=== PATIENT | female | born 1990 | race Caucasian/White ===

== ENCOUNTER 2016-07-15 22:00 | Emergency (ER) | payer OTHER ==
--- NOTE | 2016-07-16 00:15 | ED NURSING NOTES ---
Clinical Report - Nurses [facility] [address] [place] [address] 07/15/2016 22:00 Patient: LUDMILA JEFFERS TRIAGE Acuity: LEVEL 3. Chief Complaint: COUGH and AIRWAY OBSTRUCTION. Alert. No acute distress. --22:07 Melva Mayberry R.N. 22:03 07/15/16. BP: 125/82. HR: 113. RR: 24. O2 saturation: 99% on room air. Temp: 98.1 F (oral). Pain level now: 0/10. --22:07 Melva Mayberry R.N. Weight: 86.1 kg stated. Height/Length: 63 inches Per Patient. BMI: 33.6. --22:05 Melva Mayberry R.N. Medications Fish Oil Oral. --22:04 Melva Mayberry R.N. Medication/allergy information source: the patient. --22: Melva Mayberry R.N. Allergies Keflex. --22:04 Melva Mayberry R.N. Amoxicillin. --22:04 Melva Mayberry R.N. History Arrived by private vehicle. Historian: patient. Accompanied by spouse. Onset. (45 minutes ago). Treatment DIRECTOR OF PUBLIC SAFETY: (allergy medication). PAST MEDICAL HX: Immunizations: up-to-date. Last normal menstrual period was 3 weeks ago. SOCIAL HX: Never smoker. FALL RISK ASSESSMENT: Fall risk assessment completed. No fall risk identified. NUTRITIONAL RISK ASSESSMENT: The nutritional risk assessment revealed no deficiencies. FUNCTIONAL ASSESSMENT: Functional assessment: no impairments noted. LEARNING NEEDS ASSESSMENT: The learning needs assessment revealed no barriers. SKIN INTEGRITY ASSESSMENT: Skin integrity risk assessment completed. No skin integrity risk identified. --22:07 Melva Mayberry R.N. Assessment GENERAL / NEURO / PSYCH: Alert. Oriented X 4. Appears in no acute distress. Patient appears calm and cooperative. RESPIRATORY: Mild respiratory distress. Cough. CVS: Capillary refill less than 2 seconds. GI / : Abdomen nontender. SKIN: Mucous membranes are pink. Skin is warm and dry. --: Melva Mayberry R.N. Interventions ID band on patient. To treatment room. --: Melva Mayberry R.N. PHYSICAL ASSESSMENT :07/15/16. Ambulatory to room. GENERAL / NEURO / PSYCH: Alert. Oriented X 4. Appears in no acute distress. HEENT: Pupils equal, round and reactive to light. Voice within normal limits. Mucous membranes are pink. RESPIRATORY: Mild respiratory distress. The patient can speak in full sentences. Cough. CVS: Capillary refill less than 2 seconds. SKIN: Skin is warm and dry. Normal skin turgor. --: Melva Mayberry R.N. NURSING PROGRESS NOTES :07/15/16. Patient gowned. Reassurance given. Two patient identifiers checked. Call light placed in reach. Side rails up x 1. Bed placed in lowest position. Brakes of bed on. Patient ready for evaluation- chart flagged. --: Melva Mayberry R.N. 22:07/15/2016 Site #1 started via IV in the right wrist with an 20g angiocath, with aseptic technique and good blood return; one attempt. Blood drawn: rainbow set. Labeled in the presence of the patient and held. Saline lock flushed with 10 mL saline. --22: Melva Mayberry R.N. 22:07/15/2016 SOLU-MEDROL (MethylPREDNISolone Sodium Succ) IVP 80 mg given over 2 minute(s) via site #1. Allergies verified and confirmed 5 rights. IV patency established. IV site checked: no pain, redness, or swelling. IV flushed thoroughly pre- and post-medication administration. IVP given by RN. --22: Melva Mayberry R.N. 22:07/15/2016 Benadryl (DiphenhydrAMINE HCl) IVP 25 mg given over 1 minute(s) via site #1. Allergies verified, confirmed 5 rights and sedative warning given to the patient. IV patency established. IV site checked: no pain, redness, or swelling. IV flushed thoroughly pre- and post-medication administration. IVP given by RN. --: Melva Mayberry R.N. 22:07/15/2016 Famotidine PO 40 mg given. Allergies verified and confirmed 5 rights. --22: Melva Mayberry R.N. 22:07/15/2016 Albuterol Neb TX 2.5 mg given. Given by the respiratory therapist. Allergies verified and confirmed 5 rights. --22:29 Melva Mayberry R.N. 23:07/15/16. BP: 108/61. HR: 90. RR: 18. O2 saturation: 99% on room air. --23: Melva Mayberry R.N. 22:40 07/15/2016 RACEPINEPHRINE Neb TX Nebulizer 1 unit dose given. Given by the respiratory therapist. Allergies verified and confirmed 5 rights. --23:19 Saeed Gomez R.N. 23:07/15/16. The patient reports no complaints, she is calm and resting quietly and she has had no adverse reaction. Overall patient status- she states feels better. RESPIRATORY: Denies cough. No respiratory distress present. --23: Melva Mayberry R.N. 23:51 07/15/16. BP: 109/59. HR: 90 (normal rate). RR: 18 (regular, unlabored and normal). O2 saturation: 97% on room air. --23:52 Saeed Gomez R.N. The patient is calm and resting quietly. RESPIRATORY: No respiratory distress. --23:52 Saeed Gomez R.N. 00:26 07/16/2016 SOLU-MEDROL IVP Response: no adverse reaction symptoms have improved the patient feels better. --00:26 Saeed Gomez R.N. 00:07/16/2016 Benadryl IVP Response: no adverse reaction symptoms have improved the patient feels better. --00:26 Saeed Gomez R.N. 00:07/16/2016 Famotidine PO Response: no adverse reaction symptoms have improved the patient feels better. --00:26 Saeed Gomez R.N. 00:26 07/16/2016 Albuterol Neb TX Response: no adverse reaction symptoms have improved the patient feels better. --00:26 Saeed Gomez R.N. 00:26 07/16/2016 RACEPINEPHRINE Neb TX Response: no adverse reaction symptoms have improved the patient feels better. --00:26 Saeed Gomez R.N. DISPOSITION / DISCHARGE Departure time: 0030. Condition at departure: stable. The goals identified in the patient's plan of care were met. No learning barriers present. Discharge instructions provided and reviewed with the patient. Reviewed medication(s) side effects, precautions, dosing and course information. Prescription(s) given to the patient. Patient verbalized understanding. Written instructions provided in Faroese. ( Ludmila verbalizes understanding of all d/c instructions including need to f/u with PCP. She has no questions and voices no concerns at this time.). The patient was discharged by the physician. She was discharged home and accompanied by microsoft exchange architect. She left the Emergency Department ambulatory and via private vehicle. Industrial Therapist driving. LORY COMA SCORE: Lory Coma Scale: 15- eyes open spontaneously (4); best verbal response- oriented x 4 (5); best motor response- obeys commands (6). --00:31 Saeed Gomez R.N. 00:30 07/16/16. BP: 113/65 (regular adult cuff) taken on the left arm, via an automated monitor, while sitting. HR: 97 (normal rate). RR: 16 (regular, unlabored and normal). O2 saturation: 98% on room air. Temp: 97.7 F (oral). Pain level now: 0/10. --00:31 Saeed Gomez R.N. 00:31 07/16/2016 Site #1 removed upon discharge. Catheter intact. Bandaid applied (Bleeding controlled.). --00:32 Saeed Gomez R.N. Locked/Released at 07/16/2016 0:32 by Saeed Gomez R.N.
--- NOTE | 2016-07-16 00:15 | ED ORDER SUMMARY ---
..... Patient: CAITY JEFFERS OrderSheet [facility] VisitID: [id number] [place] [address] 26y, F Registration Date/Time: 07/15/2016 ORDER SHEET Weight: 86.1 kg (stated) Allergies: Keflex, Amoxicillin GENERAL ORDERS: MEDICATION ORDERS: Famotidine PO 40 mg (NOW) (22:19 07/15/2016 Jeanna PLATT) (Ack 22:20 MWinterer R.N.) (22:29 MWinterer R.N.) Albuterol Neb Tx 2.5 mg (NOW, HHN) (22:20 07/15/2016 Jeanna PLATT) (Ack 22:20 MWinterer R.N.) (22:29 MWinterer R.N.) Racepinephrine Neb Tx 1 unit dose (NOW) (23:16 07/15/2016 Jeanna PLATT) (23:19 JDeElena R.N.) IV FLUIDS: Solu-MEDROL IV 80 mg (NOW) (22:19 07/15/2016 Jeanna PLATT) (Ack 22:20 MWinterer R.N.) (22:28 MWinterer R.N.) Benadryl IV 25 mg (NOW) (22:19 07/15/2016 Jeanna PLATT) (Ack 22:20 MWinterer R.N.) (22:29 MWinterer R.N.) ORDER SHEET NOTES: [Electronically signed by Saeed Gomez R.N. (00:32 07/16/2016)] [Electronically signed by Raphael Epps MD (11:44 07/19/2016)] [Electronically locked/signed by Saeed Gomez R.N. (00:32 07/16/2016)]
--- NOTE | 2016-07-16 00:15 | ED NURSING NOTES ---
Clinical Report - Nurses [facility] [address] [place] [address] 07/15/2016 22:00 Patient: LUDMILA JEFFERS TRIAGE Acuity: LEVEL 3. Chief Complaint: COUGH and AIRWAY OBSTRUCTION. Alert. No acute distress. --22:07 Melva Mayberry R.N. 22:03 07/15/16. BP: 125/82. HR: 113. RR: 24. O2 saturation: 99% on room air. Temp: 98.1 F (oral). Pain level now: 0/10. --22:07 Melva Mayberry R.N. Weight: 86.1 kg stated. Height/Length: 63 inches Per Patient. BMI: 33.6. --22:05 Melva Mayberry R.N. Medications Fish Oil Oral. --22:04 Melva Mayberry R.N. Medication/allergy information source: the patient. --22: Melva Mayberry R.N. Allergies Keflex. --22:04 Melva Mayberry R.N. Amoxicillin. --22:04 Melva Mayberry R.N. History Arrived by private vehicle. Historian: patient. Accompanied by spouse. Onset. (45 minutes ago). Treatment LINER REPLACER: (allergy medication). PAST MEDICAL HX: Immunizations: up-to-date. Last normal menstrual period was 3 weeks ago. SOCIAL HX: Never smoker. FALL RISK ASSESSMENT: Fall risk assessment completed. No fall risk identified. NUTRITIONAL RISK ASSESSMENT: The nutritional risk assessment revealed no deficiencies. FUNCTIONAL ASSESSMENT: Functional assessment: no impairments noted. LEARNING NEEDS ASSESSMENT: The learning needs assessment revealed no barriers. SKIN INTEGRITY ASSESSMENT: Skin integrity risk assessment completed. No skin integrity risk identified. --22:07 Melva Mayberry R.N. Assessment GENERAL / NEURO / PSYCH: Alert. Oriented X 4. Appears in no acute distress. Patient appears calm and cooperative. RESPIRATORY: Mild respiratory distress. Cough. CVS: Capillary refill less than 2 seconds. GI / : Abdomen nontender. SKIN: Mucous membranes are pink. Skin is warm and dry. --: Melva Mayberry R.N. Interventions ID band on patient. To treatment room. --: Melva Mayberry R.N. PHYSICAL ASSESSMENT :07/15/16. Ambulatory to room. GENERAL / NEURO / PSYCH: Alert. Oriented X 4. Appears in no acute distress. HEENT: Pupils equal, round and reactive to light. Voice within normal limits. Mucous membranes are pink. RESPIRATORY: Mild respiratory distress. The patient can speak in full sentences. Cough. CVS: Capillary refill less than 2 seconds. SKIN: Skin is warm and dry. Normal skin turgor. --: Melva Mayberry R.N. NURSING PROGRESS NOTES :07/15/16. Patient gowned. Reassurance given. Two patient identifiers checked. Call light placed in reach. Side rails up x 1. Bed placed in lowest position. Brakes of bed on. Patient ready for evaluation- chart flagged. --: Melva Mayberry R.N. 22:07/15/2016 Site #1 started via IV in the right wrist with an 20g angiocath, with aseptic technique and good blood return; one attempt. Blood drawn: rainbow set. Labeled in the presence of the patient and held. Saline lock flushed with 10 mL saline. --22: Melva Mayberry R.N. 22:07/15/2016 SOLU-MEDROL (MethylPREDNISolone Sodium Succ) IVP 80 mg given over 2 minute(s) via site #1. Allergies verified and confirmed 5 rights. IV patency established. IV site checked: no pain, redness, or swelling. IV flushed thoroughly pre- and post-medication administration. IVP given by RN. --22: Melva Mayberry R.N. 22:07/15/2016 Benadryl (DiphenhydrAMINE HCl) IVP 25 mg given over 1 minute(s) via site #1. Allergies verified, confirmed 5 rights and sedative warning given to the patient. IV patency established. IV site checked: no pain, redness, or swelling. IV flushed thoroughly pre- and post-medication administration. IVP given by RN. --: Melva Mayberry R.N. 22:07/15/2016 Famotidine PO 40 mg given. Allergies verified and confirmed 5 rights. --22: Melva Mayberry R.N. 22:07/15/2016 Albuterol Neb TX 2.5 mg given. Given by the respiratory therapist. Allergies verified and confirmed 5 rights. --22:29 Melva Mayberry R.N. 23:07/15/16. BP: 108/61. HR: 90. RR: 18. O2 saturation: 99% on room air. --23: Melva Mayberry R.N. 22:40 07/15/2016 RACEPINEPHRINE Neb TX Nebulizer 1 unit dose given. Given by the respiratory therapist. Allergies verified and confirmed 5 rights. --23:19 Saeed Gomez R.N. 23:07/15/16. The patient reports no complaints, she is calm and resting quietly and she has had no adverse reaction. Overall patient status- she states feels better. RESPIRATORY: Denies cough. No respiratory distress present. --23: Melva Mayberry R.N. 23:51 07/15/16. BP: 109/59. HR: 90 (normal rate). RR: 18 (regular, unlabored and normal). O2 saturation: 97% on room air. --23:52 Saeed Gomez R.N. The patient is calm and resting quietly. RESPIRATORY: No respiratory distress. --23:52 Saeed Gomez R.N. 00:26 07/16/2016 SOLU-MEDROL IVP Response: no adverse reaction symptoms have improved the patient feels better. --00:26 Saeed Gomez R.N. 00:07/16/2016 Benadryl IVP Response: no adverse reaction symptoms have improved the patient feels better. --00:26 Saeed Gomez R.N. 00:07/16/2016 Famotidine PO Response: no adverse reaction symptoms have improved the patient feels better. --00:26 Saeed Gomez R.N. 00:26 07/16/2016 Albuterol Neb TX Response: no adverse reaction symptoms have improved the patient feels better. --00:26 Saeed Gomez R.N. 00:26 07/16/2016 RACEPINEPHRINE Neb TX Response: no adverse reaction symptoms have improved the patient feels better. --00:26 Saeed Gomez R.N. DISPOSITION / DISCHARGE Departure time: 0030. Condition at departure: stable. The goals identified in the patient's plan of care were met. No learning barriers present. Discharge instructions provided and reviewed with the patient. Reviewed medication(s) side effects, precautions, dosing and course information. Prescription(s) given to the patient. Patient verbalized understanding. Written instructions provided in Croatian. ( Ludmila verbalizes understanding of all d/c instructions including need to f/u with PCP. She has no questions and voices no concerns at this time.). The patient was discharged by the physician. She was discharged home and accompanied by pan tank worker. She left the Emergency Department ambulatory and via private vehicle. Containers Sales Representative driving. LORY COMA SCORE: Lory Coma Scale: 15- eyes open spontaneously (4); best verbal response- oriented x 4 (5); best motor response- obeys commands (6). --00:31 Saeed Gomez R.N. 00:30 07/16/16. BP: 113/65 (regular adult cuff) taken on the left arm, via an automated monitor, while sitting. HR: 97 (normal rate). RR: 16 (regular, unlabored and normal). O2 saturation: 98% on room air. Temp: 97.7 F (oral). Pain level now: 0/10. --00:31 Saeed Gomez R.N. 00:31 07/16/2016 Site #1 removed upon discharge. Catheter intact. Bandaid applied (Bleeding controlled.). --00:32 Saeed Gomez R.N. Locked/Released at 07/16/2016 0:32 by Saeed Gomez R.N.
--- NOTE | 2016-07-16 00:15 | ED ORDER SUMMARY ---
..... Patient: CAITY JEFFERS OrderSheet [facility] VisitID: [id number] [place] [address] 26y, F Registration Date/Time: 07/15/2016 ORDER SHEET Weight: 86.1 kg (stated) Allergies: Keflex, Amoxicillin GENERAL ORDERS: MEDICATION ORDERS: Famotidine PO 40 mg (NOW) (22:19 07/15/2016 Jeanna PLATT) (Ack 22:20 MWinterer R.N.) (22:29 MWinterer R.N.) Albuterol Neb Tx 2.5 mg (NOW, HHN) (22:20 07/15/2016 Jeanna PLATT) (Ack 22:20 MWinterer R.N.) (22:29 MWinterer R.N.) Racepinephrine Neb Tx 1 unit dose (NOW) (23:16 07/15/2016 Jeanna PLATT) (23:19 JDeElena R.N.) IV FLUIDS: Solu-MEDROL IV 80 mg (NOW) (22:19 07/15/2016 Jeanna PLATT) (Ack 22:20 MWinterer R.N.) (22:28 MWinterer R.N.) Benadryl IV 25 mg (NOW) (22:19 07/15/2016 Jeanna PLATT) (Ack 22:20 MWinterer R.N.) (22:29 MWinterer R.N.) ORDER SHEET NOTES: [Electronically signed by Saeed Gomez R.N. (00:32 07/16/2016)] [Electronically signed by Raphael Epps MD (11:44 07/19/2016)] [Electronically locked/signed by Saeed Gomez R.N. (00:32 07/16/2016)]
--- NOTE | 2016-07-16 00:18 | ED CLINICAL REPORT ---
Clinical Report - Physicians/Mid Levels [facility] [address] [place] [address] 07/15/2016 22:00 Patient: CAITY JEFFERS Time Seen: 00:18 Jul 16 2016; initial documentation. Arrived- By private vehicle. Historian- patient. CPT: ER phys charges level 4 (#[id number]). HISTORY OF PRESENT ILLNESS Chief Complaint: ALLERGIC REACTION. THROAT SWELLING and DYSPNEA. This started just prior to arrival and is still present. No skin rash. She has had difficulty breathing but not had itching or swelling. A possible cause has been identified (Dogs). The patient was not assessed by EMS prior to arrival. No treatment prior to arrival. Similar symptoms previously: Milder. Recent medical care: Not recently seen/assessed. REVIEW OF SYSTEMS No eye problems, cough, sputum production, fever or chills. No joint pain, enlarged lymph nodes, headache, weakness or numbness. No chest pain, palpitations, abdominal pain, vomiting or black stools. The patient has had a sore throat. All systems otherwise negative, except as recorded above. PAST HISTORY See nurses notes. Prior allergic reaction. Medications: Fish Oil Oral. Allergies: Amoxicillin. Keflex. SOCIAL HISTORY Never smoker. ADDITIONAL NOTES The nursing notes have been reviewed. PHYSICAL EXAM Vital Signs: 07/15/2016 22:03 BP: 125/82. HR: 113. RR: 24. O2 saturation: 99%. Temp: 98.1 F. Pain level now: 0/10. Appearance: Alert. Patient in mild distress. Head and Neck: Normal external inspection. Head: No facial angioedema. Eyes: Pupils equal, round and reactive to light. ENT: Ears normal. Nose normal. Pharynx normal. Voice normal. No muffled or hoarse voice, pharyngeal erythema or nasal discharge. Neck: Neck supple. CVS: Normal heart rate and rhythm. Heart sounds normal. Respiratory: No respiratory distress. Breath sounds normal. No stridor or wheezes. (Pt with persistent cough.). Abdomen: Nontender. Skin: Skin warm and dry. Extremities: Normal external inspection. Extremities nontender. Skin: Normal skin color. Neuro: Oriented X 3. No motor deficit. No sensory deficit. PROGRESS AND PROCEDURES Course of Care: Racemic epi Solumedrol 80 mg IV Benadryl 25 mg IV Famotadine 40 mg po Patient is stable. Symptoms much better. Patient/family counseled. Disposition: Discharged. Condition: stable and improved. CLINICAL IMPRESSION Localized allergic reaction secondary to Dogs. No skin rash or hives. INSTRUCTIONS No strenuous activity. Rest. Do not work today, for one day until better. Warnings: Further evaluation is necessary. GENERAL WARNINGS: Return or contact your physician immediately if your condition worsens or changes unexpectedly, if not improving as expected, or if other problems arise. Your Current Medications: CONTINUE TAKING THE FOLLOWING MEDICATIONS: Fish Oil Oral. Prescription Medications: Famotidine 40 mg orally dissolving: take 1 orally at bedtime for 3 days. Dispense five (5). No refills. Prednisone 40 mg po q day for 3 days. OTC Medications: Benadryl Allergy 25 mg (available over the counter): take 1 orally every 6 hours as needed for allergies. Dispense fifteen (15). No refill. Substitution is permissible. Follow-up: Follow up with your doctor in two days if not better. Understanding of the discharge instructions verbalized by patient. Discharge instructions reviewed with and understanding was verbalized by dishwasher preparer. (Electronically signed by Raphael Epps MD 07/19/2016 11:44)
--- NOTE | 2016-07-16 00:18 | ED CLINICAL REPORT ---
Clinical Report - Physicians/Mid Levels [facility] [address] [place] [address] 07/15/2016 22:00 Patient: CAITY JEFFERS Time Seen: 00:18 Jul 16 2016; initial documentation. Arrived- By private vehicle. Historian- patient. CPT: ER phys charges level 4 (#[id number]). HISTORY OF PRESENT ILLNESS Chief Complaint: ALLERGIC REACTION. THROAT SWELLING and DYSPNEA. This started just prior to arrival and is still present. No skin rash. She has had difficulty breathing but not had itching or swelling. A possible cause has been identified (Dogs). The patient was not assessed by EMS prior to arrival. No treatment prior to arrival. Similar symptoms previously: Milder. Recent medical care: Not recently seen/assessed. REVIEW OF SYSTEMS No eye problems, cough, sputum production, fever or chills. No joint pain, enlarged lymph nodes, headache, weakness or numbness. No chest pain, palpitations, abdominal pain, vomiting or black stools. The patient has had a sore throat. All systems otherwise negative, except as recorded above. PAST HISTORY See nurses notes. Prior allergic reaction. Medications: Fish Oil Oral. Allergies: Amoxicillin. Keflex. SOCIAL HISTORY Never smoker. ADDITIONAL NOTES The nursing notes have been reviewed. PHYSICAL EXAM Vital Signs: 07/15/2016 22:03 BP: 125/82. HR: 113. RR: 24. O2 saturation: 99%. Temp: 98.1 F. Pain level now: 0/10. Appearance: Alert. Patient in mild distress. Head and Neck: Normal external inspection. Head: No facial angioedema. Eyes: Pupils equal, round and reactive to light. ENT: Ears normal. Nose normal. Pharynx normal. Voice normal. No muffled or hoarse voice, pharyngeal erythema or nasal discharge. Neck: Neck supple. CVS: Normal heart rate and rhythm. Heart sounds normal. Respiratory: No respiratory distress. Breath sounds normal. No stridor or wheezes. (Pt with persistent cough.). Abdomen: Nontender. Skin: Skin warm and dry. Extremities: Normal external inspection. Extremities nontender. Skin: Normal skin color. Neuro: Oriented X 3. No motor deficit. No sensory deficit. PROGRESS AND PROCEDURES Course of Care: Racemic epi Solumedrol 80 mg IV Benadryl 25 mg IV Famotadine 40 mg po Patient is stable. Symptoms much better. Patient/family counseled. Disposition: Discharged. Condition: stable and improved. CLINICAL IMPRESSION Localized allergic reaction secondary to Dogs. No skin rash or hives. INSTRUCTIONS No strenuous activity. Rest. Do not work today, for one day until better. Warnings: Further evaluation is necessary. GENERAL WARNINGS: Return or contact your physician immediately if your condition worsens or changes unexpectedly, if not improving as expected, or if other problems arise. Your Current Medications: CONTINUE TAKING THE FOLLOWING MEDICATIONS: Fish Oil Oral. Prescription Medications: Famotidine 40 mg orally dissolving: take 1 orally at bedtime for 3 days. Dispense five (5). No refills. Prednisone 40 mg po q day for 3 days. OTC Medications: Benadryl Allergy 25 mg (available over the counter): take 1 orally every 6 hours as needed for allergies. Dispense fifteen (15). No refill. Substitution is permissible. Follow-up: Follow up with your doctor in two days if not better. Understanding of the discharge instructions verbalized by patient. Discharge instructions reviewed with and understanding was verbalized by supervisor tubing. (Electronically signed by Raphael Epps MD 07/19/2016 11:44)
--- NOTE | 2016-07-19 11:45 | ED MED RECONCILIATION SUMMARY ---
Patient: CAITY JEFFERS Medication Reconciliation Report [facility] VisitID: [id number] [address] [place] [address] 26y, F Registration Date/Time: 07/15/2016 Weight: 86.1 kg Height/Length: 63 in. BMI: 33.6 ALLERGIES: Amoxicillin, Keflex The patient's Home Medications are listed below: CONTINUE TAKING THE FOLLOWING MEDICATIONS: Fish Oil Oral The source(s) of the original Home Medication information: patient The following Medications were given to the patient in the Emergency Department: SOLU-MEDROL [IVP] IVP 80 mg, administered: 07/15/2016 10:28:00 PM Benadryl [IVP] IVP 25 mg, administered: 07/15/2016 10:28:00 PM Famotidine [PO] PO 40 mg, administered: 07/15/2016 10:29:00 PM Albuterol [Neb Tx] Neb TX 2.5 mg, administered: 07/15/2016 10:29:00 PM RACEPINEPHRINE [NEB TX] Neb TX 1 unit dose, administered: 07/15/2016 10:40:00 PM The following Medications were prescribed to the patient: Prednisone 40 mg po q day for 3 days. -- Raphael Epps MD Benadryl Allergy 25 mg (available over the counter): take 1 orally every 6 hours as needed for allergies. Dispense fifteen (15). No refill. Substitution is permissible. -- Raphael Epps MD Famotidine 40 mg orally dissolving: take 1 orally at bedtime for 3 days. Dispense five (5). No refills. -- Raphael Epps MD
--- NOTE | 2016-07-19 11:45 | ED DISCHARGE INSTRUCTIONS ---
Patient: CAITY JEFFERS General Instructions [facility] VisitID: [id number] [place] [address] 26y, F Registration Date/Time: 07/15/2016 Localized allergic reaction secondary to Dogs. No skin rash or hives. INSTRUCTIONS No strenuous activity. Rest. Do not work today, for one day until better. Warnings: Further evaluation is necessary. GENERAL WARNINGS: Return or contact your physician immediately if your condition worsens or changes unexpectedly, if not improving as expected, or if other problems arise. Your Current Medications: CONTINUE TAKING THE FOLLOWING MEDICATIONS: Fish Oil Oral. Prescription Medications: Famotidine 40 mg orally dissolving: take 1 orally at bedtime for 3 days. Dispense five (5). No refills. Prednisone 40 mg po q day for 3 days. OTC Medications: Benadryl Allergy 25 mg (available over the counter): take 1 orally every 6 hours as needed for allergies. Dispense fifteen (15). No refill. Substitution is permissible. Follow-up: Follow up with your doctor in two days if not better. Understanding of the discharge instructions verbalized by patient. Discharge instructions reviewed with and understanding was verbalized by straight cutter. ADDITIONAL INFORMATION Allergic Reaction,Generalized [Other] You are having an allergic reaction. This may cause an itchy rash, dizziness, fainting, trouble breathing or swallowing, and swelling of the face or other parts of the body. This can be caused by exposure to something in your surroundings that you have become sensitive to. This could be due to medicine or food. This could also be due to something you put on your skin or in your hair or something in the air. Often it is not possible to find out exactly what has caused your reaction. The goal of today's treatment is to relieve symptoms. The rash will usually fade over several days, but can sometimes last up to two weeks. Home Care: 1) If you know what you are allergic to, avoid it because future reactions could be worse than this one. 2) Avoid tight clothing and anything that heats up your skin (hot showers/baths, direct sunlight) since heat will make itching worse. 3) An ice pack will relieve local areas of intense itching and redness. Lanacaine cream or Solarcaine spray (or other product containing "benzocaine", available without a prescription) will reduce the itching. 4) Oral Benadryl (diphenhydramine) is an antihistamine available at drug and grocery stores. Unless a prescription antihistamine was given, Benadryl may be used to reduce itching if large areas of the skin are involved. Use lower doses during the daytime and higher doses at bedtime since the drug may make you sleepy. [NOTE: Do not use Benadryl if you have glaucoma or if you are a man with trouble urinating due to an enlarged prostate.] Claritin (loratidine) is an antihistamine that causes less drowsiness and is a good alternative for daytime use. Follow Up Follow Up with your doctor or this facility in two days if your symptoms do not continue to improve. If you had a severe reaction today, or if you have had several mild-moderate allergic reactions in the past, ask your doctor about allergy testing to find out what you are allergic to. If your reaction included dizziness, fainting or trouble breathing or swallowing, ask your doctor about carrying an Allergy Kit (injectable epinephrine) for home use. Get Prompt Medical Attention if any of the following occur: -- Trouble breathing or swallowing -- New or worse swelling in the face, eyelids, lips, mouth, tongue or throat -- Dizziness, weakness or fainting Famotidine Oral tablet What is this medicine? FAMOTIDINE (fa MARCO ti london) is a type of antihistamine that blocks the release of stomach acid. It is used to treat stomach or intestinal ulcers. It can also relieve heartburn from acid reflux. How should I use this medicine? Take this medicine by mouth with a glass of water. Follow the directions on the prescription label. If you only take this medicine once a day, take it at bedtime. Take your doses at regular intervals. Do not take your medicine more often than directed. Talk to your body component engineer regarding the use of this medicine in children. Special care may be needed. What side effects may I notice from receiving this medicine? Side effects that you should report to your doctor or health health care recruiter as soon as possible: agitation, nervousness confusion hallucinations skin rash, itching Side effects that usually do not require medical attention (report to your doctor or health health care recruiter if they continue or are bothersome): constipation diarrhea dizziness headache What may interact with this medicine? delavirdine itraconazole ketoconazole What if I miss a dose? If you miss a dose, take it as soon as you can. If it is almost time for your next dose, take only that dose. Do not take double or extra doses. Where should I keep my medicine? Keep out of the reach of children. Store at room temperature between 15 and 30 degrees C (59 and 86 degrees F). Do not freeze. Throw away any unused medicine after the expiration date. What should I tell my health care provider before I take this medicine? They need to know if you have any of these conditions: kidney or liver disease trouble swallowing an unusual or allergic reaction to famotidine, other medicines, foods, dyes, or preservatives or trying to get breast-feeding What should I watch for while using this medicine? Tell your doctor or health health care recruiter if your condition does not start to get better or if it gets worse. Finish the full course of tablets prescribed, even if you feel better. Do not take with aspirin, ibuprofen or other antiinflammatory medicines. These can make your condition worse. Do not smoke cigarettes or drink alcohol. These cause irritation in your stomach and can increase the time it will take for ulcers to heal. If you get black, tarry stools or vomit up what looks like coffee grounds, call your doctor or health health care recruiter at once. You may have a bleeding ulcer. Diphenhydramine Tannate Chewable tablet What is this medicine? DIPHENHYDRAMINE (dye ronda chen) is an antihistamine. It is used to treat the symptoms of an allergic reaction. How should I use this medicine? Take this medicine by mouth. Chew it completely before swallowing. Follow the directions on the prescription label. Take your doses at regular intervals. Do not take your medicine more often than directed. Talk to your body component engineer regarding the use of this medicine in children. While this drug may be prescribed for children as young as 6 years old for selected conditions, precautions do apply. Patients over 65 years old may have a stronger reaction and need a smaller dose. What side effects may I notice from receiving this medicine? Side effects that you should report to your doctor or health health care recruiter as soon as possible: allergic reactions like skin rash, itching or hives, swelling of the face, lips, or tongue changes in vision confused, agitated, nervous irregular or fast heartbeat tremor trouble passing urine unusual bleeding or bruising unusually weak or tired Side effects that usually do not require medical attention (report to your doctor or health health care recruiter if they continue or are bothersome): constipation, diarrhea drowsy headache loss of appetite stomach upset, vomiting thick mucous What may interact with this medicine? Do not take this medicine with any of the following medications: MAOIs like Carbex, Eldepryl, Marplan, Nardil, and Parnate This medicine may also interact with the following medications: alcohol barbiturates, like phenobarbital medicines for bladder spasm like oxybutynin, tolterodine medicines for blood pressure medicines for depression, anxiety, or psychotic disturbances medicines for movement abnormalities or Parkinson's disease medicines for sleep other medicines for cold, cough or allergy some medicines for the stomach like chlordiazepoxide, dicyclomine What if I miss a dose? If you miss a dose, take it as soon as you can. If it is almost time for your next dose, take only that dose. Do not take double or extra doses. Where should I keep my medicine? Keep out of the reach of children. Store at room temperature between 15 and 30 degrees C (59 and 86 degrees F). Keep container closed tightly. Throw away any unused medicine after the expiration date. What should I tell my health care provider before I take this medicine? They need to know if you have any of these conditions: glaucoma high blood pressure heart disease liver disease lung or breathing disease, like asthma pain or difficulty passing urine phenylketonuria prostate trouble ulcers or other stomach problems an unusual or allergic reaction to diphenhydramine, sulfites, other medicines foods, dyes, or preservatives or trying to get breast-feeding What should I watch for while using this medicine? Visit your doctor or health health care recruiter for regular check ups. Tell your doctor or healthcare professional if your symptoms do not start to get better or if they get worse. Your mouth may get dry. Chewing sugarless gum or sucking hard candy, and drinking plenty of water may help. Contact your doctor if the problem does not go away or is severe. This medicine may cause dry eyes and blurred vision. If you wear contact lenses you may feel some discomfort. Lubricating drops may help. See your eye doctor if the problem does not go away or is severe. You may get drowsy or dizzy. Do not drive, use machinery, or do anything that needs mental alertness until you know how this medicine affects you. Do not stand or sit up quickly, especially if you are an older patient. This reduces the risk of dizzy or fainting spells. Alcohol may interfere with the effect of this medicine. Avoid alcoholic drinks. You have been given the following additional information: Allergic Reaction, Other (General) Famotidine Oral tablet Diphenhydramine Tannate Chewable tablet No strenuous activity. Rest. Do not work today, for one day until better. (Electronically signed by Raphael Epps MD 07/19/2016 11:44)
--- NOTE | 2016-07-19 11:45 | ED MAR SUMMARY ---
..... Medication Administration Record [facility] [address] [place] [address] Patient: CAITY JEFFERS Visit ID: [id number] 26y, F Weight: 86.1 kg Height/Length: 63 in BMI: 33.6 ALLERGIES: Amoxicillin, Keflex Given 07/15/2016 Melva Mayberry R.N. Medication Administered: SOLU-MEDROL [IVP] (METHYLPREDNISOLONE SODIUM SUCC), Dose: 80 mg IVP over 2 minute(s), Site: #1 right wrist. Medication Ordered: Solu-MEDROL IV 80 mg (NOW). Given 07/15/2016 eMlva Mayberry R.N. Medication Administered: BENADRYL [IVP] (DIPHENHYDRAMINE HCL), Dose: 25 mg IVP over 1 minute(s), Site: #1 right wrist. Medication Ordered: Benadryl IV 25 mg (NOW). Given 07/15/2016 Melva Mayberry R.N. Medication Administered: FAMOTIDINE [PO], Dose: 40 mg PO. Medication Ordered: Famotidine PO 40 mg (NOW). Given 07/15/2016 Melva Mayberry R.N. Medication Administered: ALBUTEROL [NEB TX], Dose: 2.5 mg Neb TX. Medication Ordered: Albuterol Neb Tx 2.5 mg (NOW, [facility]). Given 07/15/2016 Saeed Gomez R.N. Medication Administered: RACEPINEPHRINE [NEB TX], Dose: 1 unit dose Nebulizer Neb TX. Medication Ordered: Racepinephrine Neb Tx 1 unit dose (NOW).
--- NOTE | 2016-07-19 11:45 | ED MED RECONCILIATION SUMMARY ---
Patient: CAITY JEFFERS Medication Reconciliation Report [facility] VisitID: [id number] [address] [place] [address] 26y, F Registration Date/Time: 07/15/2016 Weight: 86.1 kg Height/Length: 63 in. BMI: 33.6 ALLERGIES: Amoxicillin, Keflex The patient's Home Medications are listed below: CONTINUE TAKING THE FOLLOWING MEDICATIONS: Fish Oil Oral The source(s) of the original Home Medication information: patient The following Medications were given to the patient in the Emergency Department: SOLU-MEDROL [IVP] IVP 80 mg, administered: 07/15/2016 10:28:00 PM Benadryl [IVP] IVP 25 mg, administered: 07/15/2016 10:28:00 PM Famotidine [PO] PO 40 mg, administered: 07/15/2016 10:29:00 PM Albuterol [Neb Tx] Neb TX 2.5 mg, administered: 07/15/2016 10:29:00 PM RACEPINEPHRINE [NEB TX] Neb TX 1 unit dose, administered: 07/15/2016 10:40:00 PM The following Medications were prescribed to the patient: Prednisone 40 mg po q day for 3 days. -- Raphael Epps MD Benadryl Allergy 25 mg (available over the counter): take 1 orally every 6 hours as needed for allergies. Dispense fifteen (15). No refill. Substitution is permissible. -- Raphael Epps MD Famotidine 40 mg orally dissolving: take 1 orally at bedtime for 3 days. Dispense five (5). No refills. -- Raphael Epps MD
--- NOTE | 2016-07-19 11:45 | ED MAR SUMMARY ---
..... Medication Administration Record [facility] [address] [place] [address] Patient: CAITY JEFFERS Visit ID: [id number] 26y, F Weight: 86.1 kg Height/Length: 63 in BMI: 33.6 ALLERGIES: Amoxicillin, Keflex Given 07/15/2016 Melva Mayberry R.N. Medication Administered: SOLU-MEDROL [IVP] (METHYLPREDNISOLONE SODIUM SUCC), Dose: 80 mg IVP over 2 minute(s), Site: #1 right wrist. Medication Ordered: Solu-MEDROL IV 80 mg (NOW). Given 07/15/2016 Melva Mayberry R.N. Medication Administered: BENADRYL [IVP] (DIPHENHYDRAMINE HCL), Dose: 25 mg IVP over 1 minute(s), Site: #1 right wrist. Medication Ordered: Benadryl IV 25 mg (NOW). Given 07/15/2016 Melva Mayberry R.N. Medication Administered: FAMOTIDINE [PO], Dose: 40 mg PO. Medication Ordered: Famotidine PO 40 mg (NOW). Given 07/15/2016 Melva Mayberry R.N. Medication Administered: ALBUTEROL [NEB TX], Dose: 2.5 mg Neb TX. Medication Ordered: Albuterol Neb Tx 2.5 mg (NOW, [facility]). Given 07/15/2016 Saeed Gomez R.N. Medication Administered: RACEPINEPHRINE [NEB TX], Dose: 1 unit dose Nebulizer Neb TX. Medication Ordered: Racepinephrine Neb Tx 1 unit dose (NOW).
--- NOTE | 2016-07-19 11:45 | ED DISCHARGE INSTRUCTIONS ---
Patient: CAITY JEFFERS General Instructions [facility] VisitID: [id number] [place] [address] 26y, F Registration Date/Time: 07/15/2016 Localized allergic reaction secondary to Dogs. No skin rash or hives. INSTRUCTIONS No strenuous activity. Rest. Do not work today, for one day until better. Warnings: Further evaluation is necessary. GENERAL WARNINGS: Return or contact your physician immediately if your condition worsens or changes unexpectedly, if not improving as expected, or if other problems arise. Your Current Medications: CONTINUE TAKING THE FOLLOWING MEDICATIONS: Fish Oil Oral. Prescription Medications: Famotidine 40 mg orally dissolving: take 1 orally at bedtime for 3 days. Dispense five (5). No refills. Prednisone 40 mg po q day for 3 days. OTC Medications: Benadryl Allergy 25 mg (available over the counter): take 1 orally every 6 hours as needed for allergies. Dispense fifteen (15). No refill. Substitution is permissible. Follow-up: Follow up with your doctor in two days if not better. Understanding of the discharge instructions verbalized by patient. Discharge instructions reviewed with and understanding was verbalized by stock handler floorperson. ADDITIONAL INFORMATION Allergic Reaction,Generalized [Other] You are having an allergic reaction. This may cause an itchy rash, dizziness, fainting, trouble breathing or swallowing, and swelling of the face or other parts of the body. This can be caused by exposure to something in your surroundings that you have become sensitive to. This could be due to medicine or food. This could also be due to something you put on your skin or in your hair or something in the air. Often it is not possible to find out exactly what has caused your reaction. The goal of today's treatment is to relieve symptoms. The rash will usually fade over several days, but can sometimes last up to two weeks. Home Care: 1) If you know what you are allergic to, avoid it because future reactions could be worse than this one. 2) Avoid tight clothing and anything that heats up your skin (hot showers/baths, direct sunlight) since heat will make itching worse. 3) An ice pack will relieve local areas of intense itching and redness. Lanacaine cream or Solarcaine spray (or other product containing "benzocaine", available without a prescription) will reduce the itching. 4) Oral Benadryl (diphenhydramine) is an antihistamine available at drug and grocery stores. Unless a prescription antihistamine was given, Benadryl may be used to reduce itching if large areas of the skin are involved. Use lower doses during the daytime and higher doses at bedtime since the drug may make you sleepy. [NOTE: Do not use Benadryl if you have glaucoma or if you are a man with trouble urinating due to an enlarged prostate.] Claritin (loratidine) is an antihistamine that causes less drowsiness and is a good alternative for daytime use. Follow Up Follow Up with your doctor or this facility in two days if your symptoms do not continue to improve. If you had a severe reaction today, or if you have had several mild-moderate allergic reactions in the past, ask your doctor about allergy testing to find out what you are allergic to. If your reaction included dizziness, fainting or trouble breathing or swallowing, ask your doctor about carrying an Allergy Kit (injectable epinephrine) for home use. Get Prompt Medical Attention if any of the following occur: -- Trouble breathing or swallowing -- New or worse swelling in the face, eyelids, lips, mouth, tongue or throat -- Dizziness, weakness or fainting Famotidine Oral tablet What is this medicine? FAMOTIDINE (fa MARCO ti l[place]) is a type of antihistamine that blocks the release of stomach acid. It is used to treat stomach or intestinal ulcers. It can also relieve heartburn from acid reflux. How should I use this medicine? Take this medicine by mouth with a glass of water. Follow the directions on the prescription label. If you only take this medicine once a day, take it at bedtime. Take your doses at regular intervals. Do not take your medicine more often than directed. Talk to your director of state regarding the use of this medicine in children. Special care may be needed. What side effects may I notice from receiving this medicine? Side effects that you should report to your doctor or health residential caregiver as soon as possible: agitation, nervousness confusion hallucinations skin rash, itching Side effects that usually do not require medical attention (report to your doctor or health residential caregiver if they continue or are bothersome): constipation diarrhea dizziness headache What may interact with this medicine? delavirdine itraconazole ketoconazole What if I miss a dose? If you miss a dose, take it as soon as you can. If it is almost time for your next dose, take only that dose. Do not take double or extra doses. Where should I keep my medicine? Keep out of the reach of children. Store at room temperature between 15 and 30 degrees C (59 and 86 degrees F). Do not freeze. Throw away any unused medicine after the expiration date. What should I tell my health care provider before I take this medicine? They need to know if you have any of these conditions: kidney or liver disease trouble swallowing an unusual or allergic reaction to famotidine, other medicines, foods, dyes, or preservatives or trying to get breast-feeding What should I watch for while using this medicine? Tell your doctor or health residential caregiver if your condition does not start to get better or if it gets worse. Finish the full course of tablets prescribed, even if you feel better. Do not take with aspirin, ibuprofen or other antiinflammatory medicines. These can make your condition worse. Do not smoke cigarettes or drink alcohol. These cause irritation in your stomach and can increase the time it will take for ulcers to heal. If you get black, tarry stools or vomit up what looks like coffee grounds, call your doctor or health residential caregiver at once. You may have a bleeding ulcer. Diphenhydramine Tannate Chewable tablet What is this medicine? DIPHENHYDRAMINE (dye ronda chen) is an antihistamine. It is used to treat the symptoms of an allergic reaction. How should I use this medicine? Take this medicine by mouth. Chew it completely before swallowing. Follow the directions on the prescription label. Take your doses at regular intervals. Do not take your medicine more often than directed. Talk to your director of state regarding the use of this medicine in children. While this drug may be prescribed for children as young as 6 years old for selected conditions, precautions do apply. Patients over 65 years old may have a stronger reaction and need a smaller dose. What side effects may I notice from receiving this medicine? Side effects that you should report to your doctor or health residential caregiver as soon as possible: allergic reactions like skin rash, itching or hives, swelling of the face, lips, or tongue changes in vision confused, agitated, nervous irregular or fast heartbeat tremor trouble passing urine unusual bleeding or bruising unusually weak or tired Side effects that usually do not require medical attention (report to your doctor or health residential caregiver if they continue or are bothersome): constipation, diarrhea drowsy headache loss of appetite stomach upset, vomiting thick mucous What may interact with this medicine? Do not take this medicine with any of the following medications: MAOIs like Carbex, Eldepryl, Marplan, Nardil, and Parnate This medicine may also interact with the following medications: alcohol barbiturates, like phenobarbital medicines for bladder spasm like oxybutynin, tolterodine medicines for blood pressure medicines for depression, anxiety, or psychotic disturbances medicines for movement abnormalities or Parkinson's disease medicines for sleep other medicines for cold, cough or allergy some medicines for the stomach like chlordiazepoxide, dicyclomine What if I miss a dose? If you miss a dose, take it as soon as you can. If it is almost time for your next dose, take only that dose. Do not take double or extra doses. Where should I keep my medicine? Keep out of the reach of children. Store at room temperature between 15 and 30 degrees C (59 and 86 degrees F). Keep container closed tightly. Throw away any unused medicine after the expiration date. What should I tell my health care provider before I take this medicine? They need to know if you have any of these conditions: glaucoma high blood pressure heart disease liver disease lung or breathing disease, like asthma pain or difficulty passing urine phenylketonuria prostate trouble ulcers or other stomach problems an unusual or allergic reaction to diphenhydramine, sulfites, other medicines foods, dyes, or preservatives or trying to get breast-feeding What should I watch for while using this medicine? Visit your doctor or health residential caregiver for regular check ups. Tell your doctor or healthcare professional if your symptoms do not start to get better or if they get worse. Your mouth may get dry. Chewing sugarless gum or sucking hard candy, and drinking plenty of water may help. Contact your doctor if the problem does not go away or is severe. This medicine may cause dry eyes and blurred vision. If you wear contact lenses you may feel some discomfort. Lubricating drops may help. See your eye doctor if the problem does not go away or is severe. You may get drowsy or dizzy. Do not drive, use machinery, or do anything that needs mental alertness until you know how this medicine affects you. Do not stand or sit up quickly, especially if you are an older patient. This reduces the risk of dizzy or fainting spells. Alcohol may interfere with the effect of this medicine. Avoid alcoholic drinks. You have been given the following additional information: Allergic Reaction, Other (General) Famotidine Oral tablet Diphenhydramine Tannate Chewable tablet No strenuous activity. Rest. Do not work today, for one day until better. (Electronically signed by Raphael Epps MD 07/19/2016 11:44)
== END 2016-07-16 00:30 | disposition home or self-care (01) ==
LOC: ED SRH 22:00
DX: R06.00 Dyspnea, unspecified (principal); R22.1 Localized swelling, mass and lump, neck; Z88.1 Allergy status to other antibiotic agents; Z88.0 Allergy status to penicillin; J30.81 Allergic rhinitis due to animal (cat) (dog) hair and dander